=== PATIENT | female | born 1995 ===

== ENCOUNTER → 2022-01-20 | Outpatient (CLI) | payer BC ==
[2022-01-20 14:23] LABS: HCT 41.2 % (37.2-46.3); HGB 13.4 g/dL (12.0-15.0); MCH 29.3 pg (27.0-32.0); MCHC 32.5 g/dL (32.0-37.0); NRBC Per 100 WBC 0 /100 WBCS (0.0-0.0); Platelet Count 285 X 10*3/uL (140-440); RBC 4.58 X 10*6/uL (4.10-5.20); RDW 13.4 % (11.5-14.5); WBC 6.98 X 10*3/uL (4.50-10.00)
[2022-01-20 14:41] LABS: Thyroid Peroxidase Antibodies 10.6 U/mL (0.0-33.0)
[2022-01-20 15:02] LABS: Estradiol 21.2 pg/mL; Follicle Stimulating Hormone 9.5 mIU/mL; Luteinizing Hormone 25.4 mIU/mL; Prolactin 10.3 ng/mL (2.800-29.200)
[2022-01-20 17:12] LABS: African American GFR (CKD) 126.9 (60.0-200.0); Albumin 4.7 g/dL (3.8-4.9); Albumin/Globulin Ratio 1.37 (1.60-3.17); Anion Gap 13.9 mmol/L (10.00-18.00); BUN/Creat Ratio 13.94 Ratio (12.00-20.00); Blood Urea Nitrogen 10.5 mg/dL (9.0-27.0); Calcium 9.9 mg/dL (8.7-10.3); Carbon Dioxide 21.4 mmol/L (20.0-27.5); Globulin 3.5 g/dL (1.6-3.3); Non-African American GFR(CKD) 109.5 (60.0-200.0); Potassium 4.2 mmol/L (3.5-5.5); T4, Free (Free Thyroxine) 1.11 ng/dL (0.800-1.800); Total Bilirubin 0.5 mg/dL (0.30-1.20); Total Protein 8.2 g/dL (6.2-8.2)
[2022-01-21 05:05] LABS: ACTH 8.02 pg/mL (0.00-45.99)
== END | disposition home or self-care (01) ==
LOC: LABWHC1 10:39
PROVIDERS: ATTEND Internal Medicine Endocrinology, Diabetes & Metabolism
DX: R53.83 Other fatigue (principal)
CPT/HCPCS: 36415; 80053; 82024; 82533; 82607; 82670; 83001; 83002; 84146; 84439; 84443; 84481; 85027; 86376

== ENCOUNTER 2022-06-29 12:27 | Emergency (ER) | payer BC ==
[2022-06-29 12:36] VITALS: RESP 18; TEMP 97.4
[2022-06-29] MEDS ORDERED: DIPH,PERTUS(ACELL)TETVAC-LF 0.5 ML VIAL IM ONE (12:43)
[2022-06-29] MEDS ORDERED: VANCOMYCIN 1,000 MG in SODIUM CHLORIDE 0.9% 250 ML IVPB STA (12:48)
[2022-06-29] MEDS ORDERED: KETOROLAC 15 MG/ML 1 ML VIAL IVP STA (12:49)
--- NOTE | 2022-06-29 13:11 | XR ---
EXAMINATION TYPE: XR tibia fibula RT DATE OF EXAM: 06/29/2022 12:57 PM INDICATION: Patient age:Female; 26 years old; Reason for study: injury, laceration with bone exposed; COMPARISON: None TECHNIQUE: The right tibia/fibula was examined in AP and lateral projections. FINDINGS: Skin defect of the medial aspect of the leg. No evidence of acute fracture. The suspected r emote completely healed fracture of the distal diaphysis of the right tibia. No evidence of any acute osseous pathology, joint dislocation, or soft tissue swelling is noted. IMPRESSION: 1. Soft tissue defect consistent with provided history of laceration. 2. No evidence of acute fracture. 3. Remote fracture of the distal tibial diaphysis.
[2022-06-29] MEDS ORDERED: VANCOMYCIN IV PER PHARMACY 1 EACH MISC MISCELLANE PRN (13:14)
[2022-06-29] MEDS ORDERED: VANCOMYCIN 1,500 MG in SODIUM CHLORIDE 0.9% 500 ML 500 ML IVPB ONE (13:15)
[2022-06-29] MEDS ORDERED: LIDOCAINE 1% INJ 10MG/ML (30 ML VIAL-PF) SQ ONE (13:42)
--- NOTE | 2022-06-29 14:03 | ED ---
Wound/Laceration HPI - General Chief Complaint: Wound/Laceration Stated Complaint: fall Time Seen by Provider: 06/29/22 12:29 Source: patient, EMS Mode of arrival: EMS Limitations: no limitations - History of Present Illness Initial Comments: Patient is a 26-year-old female who presents to the emergency department for laceration. Patient fell while moving a drawer with a kati which cause large laceration in her left calf. Patient unsure of what cut her however EMS believes it was the kati. Patient denies numbness and tingling. She has been walking on the LLE with mild pain. Last tetanus unknown. - Related Data Home Medications Medication Instructions Recorded Confirmed FLUoxetine HCL [PROzac] 20 mg PO DAILY 06/29/22 06/29/22 Lacosamide [Vimpat] 50 mg PO BID 06/29/22 06/29/22 Previous Rx's Medication Instructions Recorded Cephalexin [Keflex] 500 mg PO Q6HR #56 cap 06/29/22 Ibuprofen [Motrin] 800 mg PO Q8H PRN #30 tab 06/29/22 Allergies Allergy/AdvReac Type Severity Reaction Status Date / Time No Known Allergies Allergy Verified 06/29/22 13:22 Review of Systems ROS Statement: Those systems with pertinent positive or pertinent negative responses have been documented in the HPI. ROS Other: All systems not noted in ROS Statement are negative. Past Medical History Past Medical History: Hyperlipidemia, Seizure Disorder Additional Past Medical History / Comment(s): Early menopause History of Any Multi-Drug Resistant Organisms: None Reported Past Surgical History: Section Past Psychological History: Anxiety Smoking Status: Never smoker Past Alcohol Use History: Occasional Past Drug Use History: None Reported General Exam Limitations: no limitations General appearance: alert, in no apparent distress Head exam: Present: atraumatic, normocephalic, normal inspection Respiratory exam: Present: normal lung sounds bilaterally. Absent: respiratory distress, wheezes, rales, rhonchi, stridor Cardiovascular Exam: Present: regular rate, normal rhythm, normal heart sounds. Absent: systolic murmur, diastolic murmur, rubs, gallop, clicks Left Upper Leg exam: Present: normal inspection. Absent: tenderness, swelling Knee exam: Present: normal inspection, full ROM. Absent: tenderness, swelling Lower Leg exam: Present: laceration (12 cm, v shaped over calf. Laceration through adipose tissue with minimal interruption of muscle fascia. Neurovascularly intact. Full ROM. No strength deficit of LLE.) Neurovascular tendon exam: Present: no vascular compromise Neurological exam: Present: alert, oriented X3, CN II-XII intact Psychiatric exam: Present: normal affect, normal mood Skin exam: Present: warm, dry, intact, normal color. Absent: rash Course Vital Signs 06/29/22 06/29/22 12:33 17:00 Temperature 97.4 F L Pulse Rate 70 103 H Respiratory 18 18 Rate Blood Pressure 127/97 132/98 O2 Sat by Pulse 100 98 Oximetry Procedures - Laceration Laceration #1 Consent Obtained: verbal consent Indication: laceration Site: lower extremity Size (cm): 12 Description: irregular Depth: involves muscle layer Anesthetic Used: lidocaine 1% Anesthesia Technique: local infiltration Amount (mls): 20 Pre-repair: wound explored, irrigated extensively Type of Sutures: nylon, vicryl Size of Sutures: 3-0 Number of Sutures: 31 Technique: simple, interrupted, vertical mattress Patient Tolerated Procedure: well, no complications - Orthopedic Splinting/Casting Injury #1 Lower Extremity Immobilizer: posterior splint Medical Decision Making - Medical Decision Making Was pt. sent in by a medical professional or institution? No Did you speak to anyone other than the patient for history? No Did you review nursing and triage notes? Yes, symptoms consistent with nursing and triage notes. Were old charts reviewed? No Differential Diagnosis? laceration, MSK injury, tibial fracture EKG interpreted by me (3pts min.)? NA X-rays interpreted by me (1pt min.)? Yes, tibia/fibular x-ray obtained and interpreted by me showing no fracture or foreign body CT interpreted by me (1pt min.)? NA U/S interpreted by me (1pt. min.)? NA What testing was considered but not performed? (CT, X-rays, U/S, labs)? Why? None What meds were considered but not given? Why? None Did you discuss the management of the patient with other professionals? Yes, I discussed the case with my attending Dr. Vivas Did you reconcile home meds? No, patient discharged. Was smoking cessation discussed for >3mins.? NA Was critical care preformed (if so, how long)? No Were there social determinants of health that impacted care today? How? (Homelessness, low income, unemployed, alcoholism, drug addiction, transportation, low edu. Level, literacy, decrease access to med. care, [facility], rehab)? No Was there de-escalation of care discussed even if they declined? (Discuss DNR or withdrawal of care, Hospice)? No What co-morbidities impacted this encounter? (DM, HTN, Smoking, COPD, CAD, Cancer, CVA, Hep., AIDS, mental health diagnosis, sleep apnea, morbid obesity)? No Was patient admitted / discharged? This is a 26 year female presenting laceration. IV antibiotics initiated due to concern for open fracture. X-ray negative for fracture or other acute process. The laceration was irrigated extensively. There was minimal interruption of the muscle fascia. There was no vasculature involvement. Using Vicryl suture the fascia and adipose tissue was well approximated. Nylon suture was then used to approximate the skin. Patient tolerated procedure well with no complication. She was then placed in a posterior ankle splint to encourage dorsiflexion of her foot to preserve calf strength. We discussed wound care in detail. Tetanus updated. Patient has no strength deficit, no bone involvement. She is in stable medical condition for discharge. DC with keflex. Undiagnosed new problem with uncertain prognosis? No Drug Therapy requiring intensive monitoring for toxicity (Heparin, Nitro, Insulin, Cardizem)? No Were any procedures done? Yes, laceration repair and splinting Diagnosis/symptom? Laceration Acute, or Chronic, or Acute on Chronic? Acute Uncomplicated (without systemic symptoms) or Complicated (systemic symptoms)? NA Side effects of treatment? Prior to discharge patient did have itching and erythema to left hand. This was shortly after vancomycin was given in left arm. No known allergy. Patient denied swelling of the throat, trouble breathing, shortness of breath. She was given allergy cocktail. Patient adamant on going home and declined staying for further observation in the emergency department. We discussed strict return parameters Exacerbation, Progression, or Severe Exacerbation] NA Poses a threat to life or bodily function? No Disposition Clinical Impression: Laceration, Right leg injury Disposition: HOME SELF-CARE Condition: Good Instructions (If sedation given, give patient instructions): Care For Your Stitches (ED), Laceration (ED) Additional Instructions: Keep wound clean and dry. Change dressing every 24 hours. There should be wet dressing with gauze over top. This will require taking off the splint. Please replace afterwards with foot. flexed. Take medication as directed. Please make sure to walk daily to avoid blood clots but avoid strenuous activity that can tear sutures. Follow-up with primary care provider in 1-2 days. Return for suture removal in 14 days. Report back to the emergency department if you experience new, concerning, or worsening symptoms. Prescriptions: Cephalexin [Keflex] 500 mg PO Q6HR #56 cap Ibuprofen [Motrin] 800 mg PO Q8H PRN #30 tab PRN Reason: Pain Is patient prescribed a controlled substance at d/c from ED?: No Referrals: Myah Mcginnis DO [Primary Care Provider] - 1-2 days Time of Disposition: 16:39
[2022-06-29] MEDS ORDERED: ACET/COD 300 MG/30 MG STARTER PACK 6 TAB BTL PO STA (16:37)
[2022-06-29] MEDS ORDERED: methylPREDNISolone SOD SUCCI 125 MG/2 ML VIAL IM ONE (16:49)
[2022-06-29] MEDS ORDERED: diphenhydrAMINE 50 MG CAP PO STA (16:50)
[2022-06-29] MEDS ORDERED: FAMOTIDINE 20 MG TAB PO STA (16:50)
[2022-06-29 17:51] VITALS: BP 132/98; PULSE 103
== END 2022-06-29 17:00 | disposition home or self-care (01) ==
LOC: EC 12:27
DX: S81.812A Laceration without foreign body, left lower leg, initial encounter (principal); S89.91XA Unspecified injury of right lower leg, initial encounter; G40.909 Epilepsy, unspecified, not intractable, without status epilepticus; F41.9 Anxiety disorder, unspecified; Z23 Encounter for immunization; W18.30XA Fall on same level, unspecified, initial encounter
CPT/HCPCS: 73590; 90715; 99284; 96365; 96366; 96368; 12001; 90471; 96375; 96372; J3370; J2930; J2001; J0696; J1885; 12004